=== PATIENT | female | born 1990 | race Caucasian/White ===

== ENCOUNTER 2017-03-17 08:25 | Inpatient (IN) | payer OTHER ==
[2017-03-17] MEDS ORDERED: Ondansetron 4 MG/2 ML SDV IVPUSH PRN ×2 (08:42→10:41)
[2017-03-17] MEDS ORDERED: Nalbuphine 20 MG/1 ML Amp IVPUSH PRN (08:42)
[2017-03-17] MEDS ORDERED: Sodium Chloride 0.9% 10 ML Syringe FLUSH PRN (08:42)
--- NOTE | 2017-03-17 08:44 | PCM.LDHP ---
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 a positive antibody screen negative hemoglobin hematocrit 09/05/1713.5 and 42.9 platelets 216,000 Pap smear negative rubella immune RPR nonreactive hepatitis B surface antigen negative HIV negative TSH within normal limits hemoglobin 12/26/1712.1 1 hour OB glucose screen 116 GBS + we'll begin antibiotics now on second dose probably at about 1:00 therefore patient will hopefully received 2 doses of antibiotics prior to delivery Pain Score: 2 Improves with: Reports: None Worsens with: Reports: None Associated Symptoms: Reports: N - Related Data Allergies/Adverse Reactions: Allergies Allergy/AdvReac Type Severity Reaction Status Date / Time gluten AdvReac Headache Verified 02/06/15 16:31 Home Medications: Home Meds Acetaminophen [Tylenol] 650 mg PO Q4H PRN #1 tablet 02/08/15 [Rx] Benzocaine/Menthol [Dermoplast Pain Relief Admire] 1 can TOP ASDIRECTED PRN #1 canister 02/08/15 [Rx] Docusate Sodium [Colace] 100 mg PO BID PRN #1 cap 02/08/15 [Rx] Ibuprofen [Motrin] 600 mg PO Q4H PRN #1 tablet 02/08/15 [Rx] Lanolin [Lansinoh HPA] 1 tube TOP ASDIRECTED PRN #1 crm 02/08/15 [Rx] Magnesium Hydroxide [Milk of Magnesia] 30 ml PO BEDTIME PRN #1 cup 02/08/15 [Rx] Witch Lucia [Tucks] 1 pad TOP ASDIRECTED PRN #1 pad 02/08/15 [Rx] Past Medical History Respiratory History: Reports: Asthma : 2 Para: 1 (1001) Psychiatric History: Reports: Anxiety, Depression Hematologic History: Reports: Anemia Social & Family History - Family History Cardiac: Reports: Hypertension (Maternal grandmother), Other (See Below) (Heart diseasematernal grandmother) Neurological: Reports: CVA (Maternal grandmother), Other (See Below) ( Fibromyalgiamother, brother; neuropathyBrother) Endocrine/Metabolic: Reports: Diabetes, type II (Maternal grandmother) Immunologic: Reports: Other (See Below) (Rheumatoid arthritismother, brother, maternal grandmother) - Tobacco Use Smoking Status *Q: Never Smoker Second Hand Smoke Exposure: No - Recreational Drug Use Recreational Drug Use: No H&P Review of Systems - Review of Systems: Review Of Systems: See Below General: Reports: No Symptoms HEENT: Reports: No Symptoms Pulmonary: Reports: No Symptoms Cardiovascular: Reports: No Symptoms Gastrointestinal: Reports: No Symptoms Genitourinary: Reports: No Symptoms Musculoskeletal: Reports: No Symptoms Skin: Reports: No Symptoms Psychiatric: Reports: No Symptoms Neurological: Reports: No Symptoms Hematologic/Lymphatic: Reports: No Symptoms Immunologic: Reports: No Symptoms L&D Exam - Exam Exam: See Below - Vital Signs Weight: 180 lb 12.8 oz - OB Specific Fundal Height In cm: 38 Contraction Intensity: Mild to Moderate Movement: Active Heart Tones: Present Heart Tones per Min: 135 Heart Rate (FHR) Variability: Moderate (6-25 bmp) Presentation: Vertex - Santos Score Santos Score Cervix Position: Posterior Santos Score Consistency: Soft Santos Score Effacement: 31-50% Santos Score Dilation: 1-2 cm Santos Score 's Station: -2 Santos Score Total: 5 - Exam General: Alert, Oriented HEENT: Conjunctiva Clear, Mucosa Moist & [place], PERRLA Neck: Supple, Trachea Midline Lungs: Clear to Auscultation, Normal Respiratory Effort Cardiovascular: Regular Rate, Regular Rhythm GI/Abdominal Exam: Normal Bowel Sounds, Soft, Non-Tender, Pelvis Stable Genitourinary: Normal external exam Extremities: Normal Inspection, Normal Range of Motion, Non-Tender, No Pedal Edema, Normal Capillary Refill Skin: Warm, Dry, Intact Neurological: Reflexes Equal Bilateral Psychiatric: Alert, Normal Affect, Normal Mood - Problem List (1) 39 weeks gestation of SNOMED Code(s): 30326336 ICD Code: Z3A.39 - 39 WEEKS GESTATION OF Status: Acute Current Visit: Yes (2) GBS carrier SNOMED Code(s): 3769635918013 ICD Code: Z22.330 - CARRIER OF GROUP B STREPTOCOCCUS Status: Acute Current Visit: Yes Problem List Initiated/Reviewed/Updated: No
[2017-03-17] MEDS ORDERED: Oxytocin/Lactated Ringers 10 UNIT/1,000 ML BAG IV SCH ×2 (08:45→09:00)
[2017-03-17] MEDS ORDERED: Misoprostol 25 MCG (1/4 of 100 MCG) Tab VAG ONE (08:46)
[2017-03-17] MEDS: Ampicillin 1 GM in Sodium Chloride 0.9% 100 ML IV SCH ×4 (09:12→10:23)
[2017-03-17] MEDS: Lactated Ringers 1,000 ML IV SCH ×3 (09:12→13:53)
[2017-03-17] MEDS ORDERED: ePHEDrine 50 MG/ML SDV IVPUSH PRN (10:41)
[2017-03-17] MEDS ORDERED: fentaNYL 100 MCG/2 ML SDV EPIDUR PRN (10:41)
[2017-03-17] MEDS ORDERED: Bupivacaine/fentaNYL/NS 100 ML Bag EPIDUR SCH (10:45)
--- NOTE | 2017-03-17 10:48 | PCM.PREANE ---
Preanesthetic Assessment - Anesthesia/Transfusion/Family Hx Anesthesia History: Prior Anesthesia Without Reaction Family History of Anesthesia Reaction: No Transfusion History: No Prior Transfusion(s) Intubation History: Unknown - Review of Systems General: No Symptoms Pulmonary: No Symptoms (asthma, has taken ventolin last 3 months ago.) Cardiovascular: No Symptoms Gastrointestinal: Constipation Neurological: No Symptoms Other: Reports: Easy Bruising, Sinus Problem (seasonal allergies), Depression, Anxiety - Physical Assessment NPO Status Date: 03/17/17 NPO Status Time: 06:00 Pulse: 85 O2 Sat by Pulse Oximetry: 100 Respiratory Rate: 14 Blood Pressure: 128/70 Temperature: 36.4 C Vital Signs: Last Vital Signs Temp 36.4 C 03/17/17 08:42 Pulse 85 03/17/17 08:42 Resp 14 03/17/17 08:42 BP 128/70 03/17/17 08:42 Pulse Ox 100 03/17/17 08:42 Height: 1.7 m Weight: 80.196 kg ASA Class: 2 Mental Status: Alert & Oriented x3 Airway Class: Mallampati = 2 Dentition: Reports: Normal Dentition, Caries Thyro-Mental Finger Breadths: 3 Mouth Opening Finger Breadths: 3 ROM/Head Extension: Full Lungs: Clear to Auscultation, Normal Respiratory Effort Cardiovascular: Regular Rate, Regular Rhythm, No Murmurs - Allergies Allergies/Adverse Reactions: Allergies Allergy/AdvReac Type Severity Reaction Status Date / Time gluten AdvReac Headache Verified 03/17/17 10:09 - Anesthesia Plan Pre-Op Medication Ordered: None - Acknowledgements Anesthesia Type Planned: Epidural Pt an Appropriate Candidate for the Planned Anesthesia: Yes Alternatives and Risks of Anesthesia Discussed w Pt/Guardian: Yes Pt/Guardian Understands and Agrees with Anesthesia Plan: Yes PreAnesthesia Questionnaire Respiratory History: Reports: Asthma [employer] History: Reports: Psychiatric History: Reports: Anxiety, Depression Other Psychiatric History: [place] with meds Hematologic History: Reports: Anemia - Past Surgical History Other HEENT Surgeries/Procedures: [place] teeth removal - SUBSTANCE USE Smoking Status *Q: Never Smoker Second Hand Smoke Exposure: No Recreational Drug Use History: No - HOME MEDS Home Medications: Home Meds Calcium Carbonate/Vitamin D3 [Calcium 500 mg Chewable Tablet] 1 each PO DAILY [History] Fluticasone/Salmeterol [Advair 250-50 Diskus] 1 puff INH BID 03/17/17 [History] Prasterone (DHEA)/Calcium Carb [DHEA] 1 tab PO DAILY 03/17/17 [History] Vit #108/Iron/FA [ One Tablet] 1 tab PO DAILY 03/17/17 [History ] buPROPion HCl [Wellbutrin Xl] 150 mg PO DAILY 03/17/17 [History] - CURRENT (IN HOUSE) MEDS Current Meds: Current Medications Lactated Ringer's (Ringers, Lactated) 1,000 mls @ 100 mls/hr IV ASDIRECTED ARACELI Last Admin: 03/17/17 09:12 Dose: 100 mls/hr Oxytocin/Lactated Ringer's (Pitocin In Lr 10 Units/1,000 Ml) 10 unit in 1,000 mls @ 500 mls/hr IV .CONTINUOUS ARACELI Oxytocin/Lactated Ringer's (Pitocin In Lr 10 Units/1,000 Ml) 10 unit in 1,000 mls @ 12 mls/hr IV TITRATE ARACELI; 2 MUNITS/MIN PRN Reason: Protocol Ampicillin Sodium 1 gm/ Sodium (Chloride) 100 mls @ 200 mls/hr IV Q4H ARACELI Nalbuphine HCl (Nubain) 10 mg IVPUSH Q2H PRN PRN Reason: Pain (moderate 4-6) Ondansetron HCl (Zofran) 4 mg IVPUSH Q4H PRN PRN Reason: Nausea/Vomiting Sodium Chloride (Saline Flush) 10 ml FLUSH ASDIRECTED PRN PRN Reason: Keep Vein Open Discontinued Medications Ampicillin Sodium 1 gm/ Sodium (Chloride) 100 mls @ 200 mls/hr IV Q15M ARACELI Stop: 03/17/17 09:30 Last Admin: 03/17/17 10:23 Dose: Not Given Misoprostol (Cytotec) 25 mcg VAG ONETIME ONE Stop: 03/17/17 08:47 Last Admin: 03/17/17 09:12 Dose: 25 mcg
[2017-03-17] MEDS ORDERED: Ampicillin 1 GM in Sodium Chloride 0.9% 100 ML IV SCH ×2 (13:00→13:15)
--- NOTE | 2017-03-17 13:13 | PCM.SN ---
- Free Text/Narrative Note: Cervix 3-4 cm, 70% effaced, soft, posterior, vtx-1, Cat I FHR before and after amniotomy at 1307 clear fluid.
--- NOTE | 2017-03-17 16:35 | PCM.DEL ---
L & D Note - General Info Date of Service: 03/17/17 - Delivery Note Labor: Spontaneous, Augmented by ARM Delivery Outcome: Livebirth (Female liveborn 1610 hrs. on Thursday03/17/17 30/4/ 50 grams 7 pounds 9.7 ounces Apgars 9/9 EDMUND) Infant Delivery Mode: Spontaneous Presentation: Left Occiput Anterior (EDMUND) Nuchal Cord: None Prep: Povidone-Iodine (Betadine Anesthesia Type: None Amniotic Fluid Description: Clear Episiotomy Type: None Laceration: 1st Degree Suture type: Other (Monocryl) Suture size: 3-0 (1) Placenta: Intact, Spontaneous (161303/17/17 eccentric cord insertion Susan, intact examined discarded) Cord: 3 Vessels Estimated Blood Loss: 250 Resuscitation Needed: No : Suctioned, Bulb Syringe, Stimulated, Warmed, [place] Used, Warmer Used Provider: Alek Shah Score 1 min: 9 Score 5 min: 9 - Patient Data Vitals - Most Recent: Last Vital Signs Temp 97.5 F 03/17/17 10:51 Pulse 85 03/17/17 10:51 Resp 14 03/17/17 10:51 BP 128/70 03/17/17 10:51 Pulse Ox 100 03/17/17 10:51 Weight - Most Recent: 176 lb 12.817 oz Lab Results Last 24 Hours: Laboratory Results - last 24 hr 03/17/17 Range/Units 10:29 WBC 7.37 (3.98-10.04) K/mm3 RBC 4.33 (3.98-5.22) M/mm3 Hgb 13.1 (11.2-15.7) gm/L Hct 39.4 (34.1-44.9) % MCV 91.0 (79.4-94.8) fl MCH 30.3 (25.6-32.2) pg MCHC 33.2 (32.2-35.5) g/dl RDW Std Deviation 43.4 (36.4-46.3) fL Plt Count 132 L (182-369) K/mm3 MPV 12.1 (9.4-12.3) fl Neut % (Auto) 68.9 (34.0-71.1) % Lymph % (Auto) 21.8 (19.3-51.7) % Jack % (Auto) 8.4 (4.7-12.5) % Eos % (Auto) 0.3 L (0.7-5.8) Baso % (Auto) 0.1 (0.1-1.2) % Neut # (Auto) 5.07 (1.56-6.13) K/mm3 Lymph # (Auto) 1.61 (1.18-3.74) K/mm3 Jack # (Auto) 0.62 H (0.24-0.36) K/mm3 Eos # (Auto) 0.02 L (0.04-0.36) K/mm3 Baso # (Auto) 0.01 (0.01-0.08) K/mm3 Med Orders - Current: Current Medications Ephedrine Sulfate (Ephedrine Sulfate) 5 mg IVPUSH ASDIRECTED PRN PRN Reason: Hypotension Fentanyl (Sublimaze) 100 mcg EPIDUR Q3H PRN PRN Reason: Pain Last Admin: 03/17/17 13:34 Dose: 100 mcg Fentanyl/Bupivacaine HCl (Fentanyl/Bupivacaine/Ns 2 Mcg-0.125% 100 Ml) 100 ml EPIDUR ASDIRECTED ARACELI Last Admin: 03/17/17 13:33 Dose: 100 ml Lactated Ringer's (Ringers, Lactated) 1,000 mls @ 100 mls/hr IV ASDIRECTED ARACELI Last Admin: 03/17/17 13:53 Dose: 100 mls/hr Oxytocin/Lactated Ringer's (Pitocin In Lr 10 Units/1,000 Ml) 10 unit in 1,000 mls @ 500 mls/hr IV .CONTINUOUS ARACELI Oxytocin/Lactated Ringer's (Pitocin In Lr 10 Units/1,000 Ml) 10 unit in 1,000 mls @ 12 mls/hr IV TITRATE ARACELI; 2 MUNITS/MIN PRN Reason: Protocol Last Titration: 03/17/17 12:27 Dose: 4 munits/min, 24 mls/hr Ampicillin Sodium 1 gm/ Sodium (Chloride) 100 mls @ 200 mls/hr IV Q4H ARACELI Last Admin: 03/17/17 13:15 Dose: 200 mls/hr Nalbuphine HCl (Nubain) 10 mg IVPUSH Q2H PRN PRN Reason: Pain (moderate 4-6) Ondansetron HCl (Zofran) 4 mg IVPUSH Q4H PRN PRN Reason: Nausea/Vomiting Ondansetron HCl (Zofran) 4 mg IVPUSH ONETIME PRN PRN Reason: Nausea/Vomiting Sodium Chloride (Saline Flush) 10 ml FLUSH ASDIRECTED PRN PRN Reason: Keep Vein Open Discontinued Medications Ampicillin Sodium 1 gm/ Sodium (Chloride) 100 mls @ 200 mls/hr IV Q15M [facility] Stop: 03/17/17 09:30 Last Admin: 03/17/17 10:23 Dose: Not Given Ampicillin Sodium 1 gm/ Sodium (Chloride) 100 mls @ 200 mls/hr IV Q4H ARACELI Misoprostol (Cytotec) 25 mcg VAG ONETIME ONE Stop: 03/17/17 08:47 Last Admin: 03/17/17 09:12 Dose: 25 mcg - Problem List & Annotations (1) 39 weeks gestation of SNOMED Code(s): 90877985 Code(s): Z3A.39 - 39 WEEKS GESTATION OF Status: Acute Current Visit: Yes (2) GBS carrier SNOMED Code(s): 0485944015168 Code(s): Z22.330 - CARRIER OF GROUP B STREPTOCOCCUS Status: Acute Current Visit: Yes (3) First degree laceration of perineum, delivered, current hospitalization SNOMED Code(s): 608602789 Code(s): O70.0 - FIRST DEGREE PERINEAL LACERATION DURING DELIVERY Status: Acute Current Visit: Yes - Problem List Review Problem List Initiated/Reviewed/Updated: No - My Orders Last 24 Hours: My Active Orders 03/17/17 08:42 Patient Status [ADT] Routine Activity as Tolerated [RC] PFP Communication Order [RC] ASDIRECTED Notify Provider [RC] PFP Notify Provider [RC] PRN Vital Signs [RC] PER UNIT ROUTINE Nalbuphine [Nubain] 10 mg IVPUSH Q2H PRN Ondansetron [Zofran] 4 mg IVPUSH Q4H PRN Sodium Chloride 0.9% [Saline Flush] 10 ml FLUSH ASDIRECTED PRN Electronic Heart Tones Ext w TOCO [WOMSER] Routine Electronic Heart Tones Internal [WOMSER] Per Unit Routine Peripheral IV Insertion Adult [OM.PC] Routine Resuscitation Status Routine 03/17/17 08:43 Heart Tones [RC] ASDIRECTED Peripheral IV Care [RC] . DIRECTED 03/17/17 08:45 Lactated Ringers [Ringers, Lactated] 1,000 ml IV ASDIRECTED Oxytocin/Lactated Ringers [Pitocin in LR 10 Units/1,000 ML] 10 unit in 1,000 ml IV .CONTINUOUS 03/17/17 09:00 Oxytocin/Lactated Ringers [Pitocin in LR 10 Units/1,000 ML] 10 unit in 1,000 ml IV TITRATE 03/17/17 13:15 Ampicillin 1 gm Sodium Chloride 0.9% [Normal Saline] 100 ml IV Q4H 03/17/17 Breakfast Clear Liquid Diet [DIET] - Plan Plan:: Spontaneous vaginal delivery
[2017-03-17] MEDS ORDERED: Witch Hazel Medicated Pads 100/Jar TOP PRN (17:03)
[2017-03-17] MEDS ORDERED: Lanolin 100% Cream 7 GM Tube TOP PRN (17:03)
[2017-03-17] MEDS ORDERED: Ibuprofen 600 MG Tab PO PRN (17:03)
[2017-03-17] MEDS ORDERED: Acetaminophen 325 MG Tab PO PRN (17:03)
[2017-03-17] MEDS ORDERED: Benzocaine/Menthol 20%-0.5% Spray 56 GM Canister TOP PRN (17:03)
--- NOTE | 2017-03-17 17:47 | PCM48HPAN ---
Post Anesthesia Note - EVALUATION WITHIN 48HRS OF ANESTHETIC Vital Signs in Normal Range: Yes Patient Participated in Evaluation: Yes Respiratory Function Stable: Yes Airway Patent: Yes Cardiovascular Function Stable: Yes Hydration Status Stable: Yes Pain Control Satisfactory: Yes Nausea and Vomiting Control Satisfactory: Yes Mental Status Recovered: Yes
[2017-03-17] MEDS ORDERED: Bupivacaine 0.25% 10 ML SDV ONE (22:22)
[2017-03-17] MEDS: Formoterol/Mometasone 200-5 MCG 8.8 GM Inhaler IH SCH (22:45)
--- NOTE | 2017-03-18 07:02 | PCM.DCSUM1 ---
Discharge Summary - Hospital Course Free Text/Narrative:: [facility] LIVE L/D Delivery Note Patient Name: GREGG MOHR Date of : 86 Patient Status: Inpatient Attending Provider: Alek Shah Date: 03/17/17 16:30 Initialization Date: 03/17/17 16:30 L & D Note - General Info Date of Service: 03/17/17 - Delivery Note Labor: Spontaneous, Augmented by ARM Delivery Outcome: Livebirth (Female liveborn 1610 hrs. on Thursday03/17/17 30/4/ 50 grams 7 pounds 9.7 ounces Apgars 9/9 EDMUND) Infant Delivery Mode: Spontaneous Presentation: Left Occiput Anterior (EDMUND) Nuchal Cord: None Prep: Povidone-Iodine (Betadine Anesthesia Type: None Amniotic Fluid Description: Clear Episiotomy Type: None Laceration: 1st Degree Suture type: Other (Monocryl) Suture size: 3-0 (1) Placenta: Intact, Spontaneous (1614 Thursday03/17/17 eccentric cord insertion Susan, intact examined discarded) Cord: 3 Vessels Estimated Blood Loss: 250 Resuscitation Needed: No : Suctioned, Bulb Syringe, Stimulated, Warmed, [place] Used, Warmer Used Provider: Alek Shah Score 1 min: 9 Score 5 min: 9 - Patient Data Vitals - Most Recent: Last Vital Signs Temp 97.5 F 03/17/17 10:51 Pulse 85 03/17/17 10:51 Resp 14 03/17/17 10:51 BP 128/70 03/17/17 10:51 Pulse Ox 100 03/17/17 10:51 Weight - Most Recent: 176 lb 12.817 oz Lab Results Last 24 Hours: Laboratory Results - last 24 hr 03/17/17 Range/Units 10:29 WBC 7.37 (3.98-10.04) K/mm3 RBC 4.33 (3.98-5.22) M/mm3 Hgb 13.1 (11.2-15.7) gm/L Hct 39.4 (34.1-44.9) % MCV 91.0 (79.4-94.8) fl MCH 30.3 (25.6-32.2) pg MCHC 33.2 (32.2-35.5) g/dl RDW Std Deviation 43.4 (36.4-46.3) fL Plt Count 132 L (182-369) K/mm3 MPV 12.1 (9.4-12.3) fl Neut % (Auto) 68.9 (34.0-71.1) % Lymph % (Auto) 21.8 (19.3-51.7) % [place] % (Auto) 8.4 (4.7-12.5) % Eos % (Auto) 0.3 L (0.7-5.8) Baso % (Auto) 0.1 (0.1-1.2) % Neut # (Auto) 5.07 (1.56-6.13) K/mm3 Lymph # (Auto) 1.61 (1.18-3.74) K/mm3 [place] # (Auto) 0.62 H (0.24-0.36) K/mm3 Eos # (Auto) 0.02 L (0.04-0.36) K/mm3 Baso # (Auto) 0.01 (0.01-0.08) K/mm3 Med Orders - Current: Current Medications Ephedrine Sulfate (Ephedrine Sulfate) 5 mg IVPUSH ASDIRECTED PRN PRN Reason: Hypotension Fentanyl (Sublimaze) 100 mcg EPIDUR Q3H PRN PRN Reason: Pain Last Admin: 03/17/17 13:34 Dose: 100 mcg Fentanyl/Bupivacaine HCl (Fentanyl/Bupivacaine/Ns 2 Mcg-0.125% 100 Ml) 100 ml EPIDUR ASDIRECTED ARACELI Last Admin: 03/17/17 13:33 Dose: 100 ml Lactated Ringer's (Ringers, Lactated) 1,000 mls @ 100 mls/hr IV ASDIRECTED ARACELI Last Admin: 03/17/17 13:53 Dose: 100 mls/hr Oxytocin/Lactated Ringer's (Pitocin In Lr 10 Units/1,000 Ml) 10 unit in 1,000 mls @ 500 mls/hr IV .CONTINUOUS ARACELI Oxytocin/Lactated Ringer's (Pitocin In Lr 10 Units/1,000 Ml) 10 unit in 1,000 mls @ 12 mls/hr IV TITRATE ARACELI; 2 MUNITS/MIN PRN Reason: Protocol Last Titration: 03/17/17 12:27 Dose: 4 munits/min, 24 mls/hr Ampicillin Sodium 1 gm/ Sodium (Chloride) 100 mls @ 200 mls/hr IV Q4H ARACELI Last Admin: 03/17/17 13:15 Dose: 200 mls/hr Nalbuphine HCl (Nubain) 10 mg IVPUSH Q2H PRN PRN Reason: Pain (moderate 4-6) Ondansetron HCl (Zofran) 4 mg IVPUSH Q4H PRN PRN Reason: Nausea/Vomiting Ondansetron HCl (Zofran) 4 mg IVPUSH ONETIME PRN PRN Reason: Nausea/Vomiting Sodium Chloride (Saline Flush) 10 ml FLUSH ASDIRECTED PRN PRN Reason: Keep Vein Open Discontinued Medications Ampicillin Sodium 1 gm/ Sodium (Chloride) 100 mls @ 200 mls/hr IV Q15M ARACELI Stop: 03/17/17 09:30 Last Admin: 03/17/17 10:23 Dose: Not Given Ampicillin Sodium 1 gm/ Sodium (Chloride) 100 mls @ 200 mls/hr IV Q4H ARACELI Misoprostol (Cytotec) 25 mcg VAG ONETIME ONE Stop: 03/17/17 08:47 Last Admin: 03/17/17 09:12 Dose: 25 mcg - Problem List & Annotations (1) 39 weeks gestation of SNOMED Code(s): 61201495 Code(s): Z3A.39 - 39 WEEKS GESTATION OF Status: Acute Current Visit: Yes (2) GBS carrier SNOMED Code(s): 5179154265249 Code(s): Z22.330 - CARRIER OF GROUP B STREPTOCOCCUS Status: Acute Current Visit: Yes (3) First degree laceration of perineum, delivered, current hospitalization SNOMED Code(s): 292324195 Code(s): O70.0 - FIRST DEGREE PERINEAL LACERATION DURING DELIVERY Status: Acute Current Visit: Yes - Problem List Review Problem List Initiated/Reviewed/Updated: No - My Orders Last 24 Hours: My Active Orders 03/17/17 08:42 Patient Status [ADT] Routine Activity as Tolerated [RC] PFP Communication Order [RC] ASDIRECTED Notify Provider [RC] PFP Notify Provider [RC] PRN Vital Signs [RC] PER UNIT ROUTINE Nalbuphine [Nubain] 10 mg IVPUSH Q2H PRN Ondansetron [Zofran] 4 mg IVPUSH Q4H PRN Sodium Chloride 0.9% [Saline Flush] 10 ml FLUSH ASDIRECTED PRN Electronic Heart Tones Ext w TOCO [WOMSER] Routine Electronic Heart Tones Internal [WOMSER] Per Unit Routine Peripheral IV Insertion Adult [OM.PC] Routine Resuscitation Status Routine 03/17/17 08:43 Heart Tones [RC] ASDIRECTED Peripheral IV Care [RC] . DIRECTED 03/17/17 08:45 Lactated Ringers [Ringers, Lactated] 1,000 ml IV ASDIRECTED Oxytocin/Lactated Ringers [Pitocin in LR 10 Units/1,000 ML] 10 unit in 1,000 ml IV .CONTINUOUS 03/17/17 09:00 Oxytocin/Lactated Ringers [Pitocin in LR 10 Units/1,000 ML] 10 unit in 1,000 ml IV TITRATE 03/17/17 13:15 Ampicillin 1 gm Sodium Chloride 0.9% [Normal Saline] 100 ml IV Q4H 03/17/17 Breakfast Clear Liquid Diet [DIET] - Plan Plan:: Spontaneous vaginal delivery HPI Initial Comments: [facility] LIVE L/D Delivery Note Patient Name: GREGG MOHR Date of : 86 Patient Status: Inpatient Attending Provider: Alek Shah Date: 03/17/17 16:30 Initialization Date: 03/17/17 16:30 L & D Note - General Info Date of Service: 03/17/17 - Delivery Note Labor: Spontaneous, Augmented by ARM Delivery Outcome: Livebirth (Female liveborn 1610 hrs. on Thursday03/17/17 30/4/ 50 grams 7 pounds 9.7 ounces Apgars 9/9 EDMUND) Delivery Mode: Spontaneous Presentation: Left Occiput Anterior (EDMUND) Nuchal Cord: None Prep: Povidone-Iodine (Betadine Anesthesia Type: None Amniotic Fluid Description: Clear Episiotomy Type: None Laceration: 1st Degree Suture type: Other (Monocryl) Suture size: 3-0 (1) Placenta: Intact, Spontaneous (161303/17/17 eccentric cord insertion [place], intact examined discarded) Cord: 3 Vessels Estimated Blood Loss: 250 Resuscitation Needed: No [place]: Suctioned, Bulb Syringe, Stimulated, Warmed, Cutler Used, Warmer Used Provider: Alek Shah Score 1 min: 9 Score 5 min: 9 - Patient Data Vitals - Most Recent: Last Vital Signs Temp 97.5 F 03/17/17 10:51 Pulse 85 03/17/17 10:51 Resp 14 03/17/17 10:51 BP 128/70 03/17/17 10:51 Pulse Ox 100 03/17/17 10:51 Weight - Most Recent: 176 lb 12.817 oz Lab Results Last 24 Hours: Laboratory Results - last 24 hr 03/17/17 Range/Units 10:29 WBC 7.37 (3.98-10.04) K/mm3 RBC 4.33 (3.98-5.22) M/mm3 Hgb 13.1 (11.2-15.7) gm/L Hct 39.4 (34.1-44.9) % MCV 91.0 (79.4-94.8) fl MCH 30.3 (25.6-32.2) pg MCHC 33.2 (32.2-35.5) g/dl RDW Std Deviation 43.4 (36.4-46.3) fL Plt Count 132 L (182-369) K/mm3 MPV 12.1 (9.4-12.3) fl Neut % (Auto) 68.9 (34.0-71.1) % Lymph % (Auto) 21.8 (19.3-51.7) % [place] % (Auto) 8.4 (4.7-12.5) % Eos % (Auto) 0.3 L (0.7-5.8) Baso % (Auto) 0.1 (0.1-1.2) % Neut # (Auto) 5.07 (1.56-6.13) K/mm3 Lymph # (Auto) 1.61 (1.18-3.74) K/mm3 [place] # (Auto) 0.62 H (0.24-0.36) K/mm3 Eos # (Auto) 0.02 L (0.04-0.36) K/mm3 Baso # (Auto) 0.01 (0.01-0.08) K/mm3 Med Orders - Current: Current Medications Ephedrine Sulfate (Ephedrine Sulfate) 5 mg IVPUSH ASDIRECTED PRN PRN Reason: Hypotension Fentanyl (Sublimaze) 100 mcg EPIDUR Q3H PRN PRN Reason: Pain Last Admin: 03/17/17 13:34 Dose: 100 mcg Fentanyl/Bupivacaine HCl (Fentanyl/Bupivacaine/Ns 2 Mcg-0.125% 100 Ml) 100 ml EPIDUR ASDIRECTED ARACELI Last Admin: 03/17/17 13:33 Dose: 100 ml Lactated Ringer's (Ringers, Lactated) 1,000 mls @ 100 mls/hr IV ASDIRECTED ARACELI Last Admin: 03/17/17 13:53 Dose: 100 mls/hr Oxytocin/Lactated Ringer's (Pitocin In Lr 10 Units/1,000 Ml) 10 unit in 1,000 mls @ 500 mls/hr IV .CONTINUOUS ARACELI Oxytocin/Lactated Ringer's (Pitocin In Lr 10 Units/1,000 Ml) 10 unit in 1,000 mls @ 12 mls/hr IV TITRATE ARACELI; 2 MUNITS/MIN PRN Reason: Protocol Last Titration: 03/17/17 12:27 Dose: 4 munits/min, 24 mls/hr Ampicillin Sodium 1 gm/ Sodium (Chloride) 100 mls @ 200 mls/hr IV Q4H [facility] Last Admin: 03/17/17 13:15 Dose: 200 mls/hr Nalbuphine HCl (Nubain) 10 mg IVPUSH Q2H PRN PRN Reason: Pain (moderate 4-6) Ondansetron HCl (Zofran) 4 mg IVPUSH Q4H PRN PRN Reason: Nausea/Vomiting Ondansetron HCl (Zofran) 4 mg IVPUSH ONETIME PRN PRN Reason: Nausea/Vomiting Sodium Chloride (Saline Flush) 10 ml FLUSH ASDIRECTED PRN PRN Reason: Keep Vein Open Discontinued Medications Ampicillin Sodium 1 gm/ Sodium (Chloride) 100 mls @ 200 mls/hr IV Q15M [facility] Stop: 03/17/17 09:30 Last Admin: 03/17/17 10:23 Dose: Not Given Ampicillin Sodium 1 gm/ Sodium (Chloride) 100 mls @ 200 mls/hr IV Q4H ARACELI Misoprostol (Cytotec) 25 mcg VAG ONETIME ONE Stop: 03/17/17 08:47 Last Admin: 03/17/17 09:12 Dose: 25 mcg - Problem List & Annotations (1) 39 weeks gestation of SNOMED Code(s): 60403852 Code(s): Z3A.39 - 39 WEEKS GESTATION OF Status: Acute Current Visit: Yes (2) GBS carrier SNOMED Code(s): 1492473366150 Code(s): Z22.330 - CARRIER OF GROUP B STREPTOCOCCUS Status: Acute Current Visit: Yes (3) First degree laceration of perineum, delivered, current hospitalization SNOMED Code(s): 447660465 Code(s): O70.0 - FIRST DEGREE PERINEAL LACERATION DURING DELIVERY Status: Acute Current Visit: Yes - Problem List Review Problem List Initiated/Reviewed/Updated: No - My Orders Last 24 Hours: My Active Orders 03/17/17 08:42 Patient Status [ADT] Routine Activity as Tolerated [RC] PFP Communication Order [RC] ASDIRECTED Notify Provider [RC] PFP Notify Provider [RC] PRN Vital Signs [RC] PER UNIT ROUTINE Nalbuphine [Nubain] 10 mg IVPUSH Q2H PRN Ondansetron [Zofran] 4 mg IVPUSH Q4H PRN Sodium Chloride 0.9% [Saline Flush] 10 ml FLUSH ASDIRECTED PRN Electronic Heart Tones Ext w TOCO [WOMSER] Routine Electronic Heart Tones Internal [WOMSER] Per Unit Routine Peripheral IV Insertion Adult [OM.PC] Routine Resuscitation Status Routine 03/17/17 08:43 Heart Tones [RC] ASDIRECTED Peripheral IV Care [RC] . DIRECTED 03/17/17 08:45 Lactated Ringers [Ringers, Lactated] 1,000 ml IV ASDIRECTED Oxytocin/Lactated Ringers [Pitocin in LR 10 Units/1,000 ML] 10 unit in 1,000 ml IV .CONTINUOUS 03/17/17 09:00 Oxytocin/Lactated Ringers [Pitocin in LR 10 Units/1,000 ML] 10 unit in 1,000 ml IV TITRATE 03/17/17 13:15 Ampicillin 1 gm Sodium Chloride 0.9% [Normal Saline] 100 ml IV Q4H 03/17/17 Breakfast Clear Liquid Diet [DIET] - Plan Plan:: Spontaneous vaginal delivery Brief History: [facility] LIVE . L/D Delivery Note. Patient Name: GREGG MOHR Record Number: [id number]. Date of : Patient Status: Inpatient. Attending Provider: Alek Shahount Number: [id number]. Date: 03/17/17 16:30Initialization Date: 03/17/17 16:30. L & D Note. - General Info. Date of Service: 03/17/17. - Delivery Note. Labor: Spontaneous, Augmented by ARM. Delivery Outcome: Livebirth (Female liveborn 1610 hrs. on Thursday03/17/17 30/4/50 grams 7 pounds 9.7 ounces Apgars 9 /9 EDMUND). Infant Delivery Mode: Spontaneous. Presentation: Left Occiput Anterior (EDMUND). Nuchal Cord: None. Prep: Povidone-Iodine (Betadine. Anesthesia Type: None. Amniotic Fluid Description: Clear. Episiotomy Type: None. Laceration: 1st Degree. Suture type: Other (Monocryl). Suture size: 3- 0 (1). Placenta: Intact, Spontaneous (161303/17/17 eccentric cord insertion Susan, intact examined discarded). Cord: 3 Vessels. Estimated Blood Loss: 250. Resuscitation Needed: No. : Suctioned, Bulb Syringe, Stimulated, Warmed, Cutler Used, Warmer Used. Provider: Alek Shah. Score 1 min: 9. Score 5 min: 9. - Patient Data. Vitals - Most Recent: Last Vital Signs. Temp 97.5 F 03/17/17 10:51. Pulse 85 03/17/17 10:51. Resp 14 03/17/17 10:51. BP 128/70 03/17/17 10:51. Pulse Ox 100 03/17/17 10:51. Weight - Most Recent: 176 lb 12.817 oz. Lab Results Last 24 Hours: Laboratory Results - last 24 hr. 03/17/17Range/Units. 10:29. WBC 7.37 (3.98-10.04) K/mm3. RBC 4.33 (3.98-5.22) M/mm3. Hgb 13.1 ( 11.2-15.7) gm/L. Hct 39.4 (34.1-44.9) %. MCV 91.0 (79.4-94.8) fl. MCH 30.3 (25.6-32.2) pg. MCHC 33.2 (32.2-35.5) g/dl. RDW Std Deviation 43.4 ( 36.4-46.3) fL. Plt Count 132 L (182-369) K/mm3. MPV 12.1 (9.4-12.3) fl. Neut % (Auto) 68.9 (34.0-71.1) %. Lymph % (Auto) 21.8 (19.3-51.7) %. [place] % (Auto) 8.4 (4.7-12.5) %. Eos % (Auto) 0.3 L (0.7-5.8). Baso % (Auto) 0.1 (0.1 -1.2) %. Neut # (Auto) 5.07 (1.56-6.13) K/mm3. Lymph # (Auto) 1.61 (1.18- 3.74) K/mm3. [place] # (Auto) 0.62 H (0.24-0.36) K/mm3. Eos # (Auto) 0.02 L ( 0.04-0.36) K/mm3. Baso # (Auto) 0.01 (0.01-0.08) K/mm3. Med Orders - Current : Current Medications. Ephedrine Sulfate (Ephedrine Sulfate) 5 mg IVPUSH ASDIRECTED PRN. PRN Reason: Hypotension. Fentanyl (Sublimaze) 100 mcg EPIDUR Q3H PRN. PRN Reason: Pain. Last Admin: 03/17/17 13:34 Dose: 100 mcg. Fentanyl/Bupivacaine HCl (Fentanyl/Bupivacaine/Ns 2 Mcg-0.125% 100 Ml) 100 ml EPIDUR ASDIRECTED ARACELI. Last Admin: 03/17/17 13:33 Dose: 100 ml. Lactated Ringer's (Ringers, Lactated) 1,000 mls @ 100 mls/hr IV ASDIRECTED ARACELI. Last Admin: 03/17/17 13:53 Dose: 100 mls/hr. Oxytocin/Lactated Ringer's (Pitocin In Lr 10 Units/1,000 Ml) 10 unit in 1,000 mls @ 500 mls/hr IV .CONTINUOUS ARACELI. Oxytocin/Lactated Ringer's (Pitocin In Lr 10 Units/1,000 Ml) 10 unit in 1, 000 mls @ 12 mls/hr IV TITRATE ARACELI; 2 MUNITS/MIN. PRN Reason: Protocol. Last Titration: 03/17/17 12:27 Dose: 4 munits/min, 24 mls/hr. Ampicillin Sodium 1 gm/ Sodium (Chloride) 100 mls @ 200 mls/hr IV Q4H ARACELI. Last Admin: 03/17/17 13 :15 Dose: 200 mls/hr. Nalbuphine HCl (Nubain) 10 mg IVPUSH Q2H PRN. PRN Reason: Pain (moderate 4-6). Ondansetron HCl (Zofran) 4 mg IVPUSH Q4H PRN. PRN Reason: Nausea/Vomiting. Ondansetron HCl (Zofran) 4 mg IVPUSH ONETIME PRN. PRN Reason: Nausea/Vomiting. Sodium Chloride (Saline Flush) 10 ml FLUSH ASDIRECTED PRN. PRN Reason: Keep Vein Open. Discontinued Medications. Ampicillin Sodium 1 gm/ Sodium (Chloride) 100 mls @ 200 mls/hr IV Q15M ARACELI. Stop: 03/17/17 09:30. Last Admin: 03/17/17 10:23 Dose: Not Given. Ampicillin Sodium 1 gm/ Sodium (Chloride) 100 mls @ 200 mls/hr IV Q4H ARACELI. Misoprostol ( Cytotec) 25 mcg VAG ONETIME ONE. Stop: 03/17/17 08:47. Last Admin: 03/17/17 09:12 Dose: 25 mcg. - Problem List & Annotations. (1) 39 weeks gestation of . SNOMED Code(s): 50300048. Code(s): Z3A.39 - 39 WEEKS GESTATION OF Status: Acute Current Visit: Yes. (2) GBS carrier. SNOMED Code(s ): 9165236648960. Code(s): Z22.330 - CARRIER OF GROUP B STREPTOCOCCUS Status : Acute Current Visit: Yes. (3) First degree laceration of perineum, delivered, current hospitalization. SNOMED Code(s): 012714650. Code(s): O70.0 - FIRST DEGREE PERINEAL LACERATION DURING DELIVERY Status: Acute Current Visit: Yes. - Problem List Review. Problem List Initiated/Reviewed/Updated: No. - My Orders. Last 24 Hours: My Active Orders. 03/17/17 08:42. Patient Status [ADT] Routine. Activity as Tolerated [RC] PFP. Communication Order [RC ] ASDIRECTED. Notify Provider [RC] PFP. Notify Provider [RC] PRN. Vital Signs [RC] PER UNIT ROUTINE. Nalbuphine [Nubain] 10 mg IVPUSH Q2H PRN. Ondansetron [Zofran] 4 mg IVPUSH Q4H PRN. Sodium Chloride 0.9% [Saline Flush ] 10 ml FLUSH ASDIRECTED PRN. Electronic Heart Tones Ext w TOCO [WOMSER ] Routine. Electronic Heart Tones Internal [WOMSER] Per Unit Routine. Peripheral IV Insertion Adult [OM.PC] Routine. Resuscitation Status Routine. 03/17/17 08:43. Heart Tones [RC] ASDIRECTED. Peripheral IV Care [RC] . DIRECTED. 03/17/17 08:45. Lactated Ringers [Ringers, Lactated] 1,000 ml IV ASDIRECTED. Oxytocin/Lactated Ringers [Pitocin in LR 10 Units/1,000 ML] 10 unit in 1,000 ml IV .CONTINUOUS. 03/17/17 09:00. Oxytocin/Lactated Ringers [ Pitocin in LR 10 Units/1,000 ML] 10 unit in 1,000 ml IV TITRATE. 03/17/17 13: 15. Ampicillin 1 gm Sodium Chloride 0.9% [Normal Saline] 100 ml IV Q4H. Breakfast. Clear Liquid Diet [DIET]. - Plan. Plan:: Spontaneous vaginal delivery - Discharge Data Discharge Date: 03/18/17 Discharge Disposition: Home, Self-Care 01 Condition: Good - Discharge Diagnosis/Problem(s) (1) 39 weeks gestation of SNOMED Code(s): 78544156 ICD Code: Z3A.39 - 39 WEEKS GESTATION OF Status: Acute Current Visit: Yes (2) GBS carrier SNOMED Code(s): 2615873569346 ICD Code: Z22.330 - CARRIER OF GROUP B STREPTOCOCCUS Status: Acute Current Visit: Yes (3) First degree laceration of perineum, delivered, current hospitalization SNOMED Code(s): 850507745 ICD Code: O70.0 - FIRST DEGREE PERINEAL LACERATION DURING DELIVERY Status: Acute Current Visit: Yes - Patient Summary/Data Complications: None Consults: None Hospital Course: Uneventful - Patient Instructions Diet: Heart Healthy Diet Driving: Do Not Drive Showering/Bathing: May Shower (48 hours) Notify Provider of: Fever, Increased Pain, Swelling and Redness, Drainage, Nausea and/or Vomiting - Discharge Plan Home Medications: Home Meds Calcium Carbonate/Vitamin D3 [Calcium 500 mg Chewable Tablet] 1 each PO DAILY [History] Fluticasone/Salmeterol [Advair 250-50 Diskus] 1 puff INH BID 03/17/17 [History] Prasterone (DHEA)/Calcium Carb [DHEA] 1 tab PO DAILY 03/17/17 [History] Vit #108/Iron/FA [ One Tablet] 1 tab PO DAILY 03/17/17 [History ] buPROPion HCl [Wellbutrin Xl] 150 mg PO DAILY 03/17/17 [History] Acetaminophen [Tylenol] 650 mg PO Q6H PRN #0 tablet 03/18/17 [Rx] Benzocaine/Menthol [Dermoplast Pain Relief [place]] 1 spray TOP ASDIRECTED PRN #0 canister 03/18/17 [Rx] Ibuprofen [IJD: Ibuprofen] 200 - 600 mg PO Q6H PRN #0 tablet 03/18/17 [Rx] Referrals: Alek Shah MD [Physician] - (6 weeks) - Discharge Summary/Plan Comment DC Time >30 min.: No - Patient Data Vitals - Most Recent: Last Vital Signs Temp 98.1 F 03/18/17 05:59 Pulse 82 03/18/17 05:59 Resp 12 03/18/17 05:59 BP 119/91 H 03/18/17 05:59 Pulse Ox 98 03/18/17 05:59 Weight - Most Recent: 176 lb 12.817 oz I&O - Last 24 hours: Intake & Output 03/17/17 03/18/17 03/18/17 22:59 06:59 14:59 Intake Total 750 Balance 750 Lab Results - Last 24 hrs: Laboratory Results - last 24 hr 03/17/17 Range/Units 10:29 WBC 7.37 (3.98-10.04) K/mm3 RBC 4.33 (3.98-5.22) M/mm3 Hgb 13.1 (11.2-15.7) gm/L Hct 39.4 (34.1-44.9) % MCV 91.0 (79.4-94.8) fl MCH 30.3 (25.6-32.2) pg MCHC 33.2 (32.2-35.5) g/dl RDW Std Deviation 43.4 (36.4-46.3) fL Plt Count 132 L (182-369) K/mm3 MPV 12.1 (9.4-12.3) fl Neut % (Auto) 68.9 (34.0-71.1) % Lymph % (Auto) 21.8 (19.3-51.7) % [place] % (Auto) 8.4 (4.7-12.5) % Eos % (Auto) 0.3 L (0.7-5.8) Baso % (Auto) 0.1 (0.1-1.2) % Neut # (Auto) 5.07 (1.56-6.13) K/mm3 Lymph # (Auto) 1.61 (1.18-3.74) K/mm3 [place] # (Auto) 0.62 H (0.24-0.36) K/mm3 Eos # (Auto) 0.02 L (0.04-0.36) K/mm3 Baso # (Auto) 0.01 (0.01-0.08) K/mm3 Med Orders - Current: Current Medications Acetaminophen (Tylenol) 650 mg PO Q4H PRN PRN Reason: mild pain or fever Benzocaine/Menthol (Dermoplast Pain Relief [place]) 0 gm TOP ASDIRECTED PRN PRN Reason: Perineal Comfort Measure Last Admin: 03/17/17 18:50 Dose: 1 can Bupropion HCl (Wellbutrin Xl) 150 mg PO DAILY ARACELI Emollient Ointment (Lansinoh Hpa) 0 gm TOP ASDIRECTED PRN PRN Reason: Sore Nipples Ibuprofen (Motrin) 600 mg PO Q4H PRN PRN Reason: Mild pain or fever Last Admin: 03/17/17 18:50 Dose: 600 mg Mometasone Furoate/Formoterol Fumar (Dulera 200-5 Mcg) 2 puff IH BID ARACELI Last Admin: 03/17/17 22:45 Dose: Not Given Prenat Multivit/[place]/Iron/Folic Ac ( Plus Iron) 1 each PO DAILY [facility] Yayo Myers (Tucks) 1 pad TOP ASDIRECTED PRN PRN Reason: Hemorrhoid pain Last Admin: 03/17/17 18:50 Dose: 1 can Discontinued Medications Ephedrine Sulfate (Ephedrine Sulfate) 5 mg IVPUSH ASDIRECTED PRN PRN Reason: Hypotension Fentanyl (Sublimaze) 100 mcg EPIDUR Q3H PRN PRN Reason: Pain Last Admin: 03/17/17 13:34 Dose: 100 mcg Fentanyl/Bupivacaine HCl (Fentanyl/Bupivacaine/Ns 2 Mcg-0.125% 100 Ml) 100 ml EPIDUR ASDIRECTED [facility] Last Admin: 03/17/17 13:33 Dose: 100 ml Ampicillin Sodium 1 gm/ Sodium (Chloride) 100 mls @ 200 mls/hr IV Q15M [facility] Stop: 03/17/17 09:30 Last Admin: 03/17/17 10:23 Dose: Not Given Lactated Ringer's (Ringers, Lactated) 1,000 mls @ 100 mls/hr IV ASDIRECTED [facility] Last Admin: 03/17/17 13:53 Dose: 100 mls/hr Oxytocin/Lactated Ringer's (Pitocin In Lr 10 Units/1,000 Ml) 10 unit in 1,000 mls @ 500 mls/hr IV .CONTINUOUS ARACELI Oxytocin/Lactated Ringer's (Pitocin In Lr 10 Units/1,000 Ml) 10 unit in 1,000 mls @ 12 mls/hr IV TITRATE ARACELI; 2 MUNITS/MIN PRN Reason: Protocol Last Titration: 03/17/17 12:27 Dose: 4 munits/min, 24 mls/hr Ampicillin Sodium 1 gm/ Sodium (Chloride) 100 mls @ 200 mls/hr IV Q4H [facility] Last Admin: 03/17/17 17:12 Dose: Not Given Ampicillin Sodium 1 gm/ Sodium (Chloride) 100 mls @ 200 mls/hr IV Q4H ARACELI Last Admin: 03/17/17 13:15 Dose: 200 mls/hr Misoprostol (Cytotec) 25 mcg VAG ONETIME ONE Stop: 03/17/17 08:47 Last Admin: 03/17/17 09:12 Dose: 25 mcg Nalbuphine HCl (Nubain) 10 mg IVPUSH Q2H PRN PRN Reason: Pain (moderate 4-6) Ondansetron HCl (Zofran) 4 mg IVPUSH Q4H PRN PRN Reason: Nausea/Vomiting Ondansetron HCl (Zofran) 4 mg IVPUSH ONETIME PRN PRN Reason: Nausea/Vomiting Sodium Chloride (Saline Flush) 10 ml FLUSH ASDIRECTED PRN PRN Reason: Keep Vein Open *Q Meaningful Use (DIS) - VTE *Q VTE Criteria *Q: - Stroke *Q Stroke Criteria *Q: - AMI *Q AMI Criteria *Q:
[2017-03-18] MEDS: Formoterol/Mometasone 200-5 MCG 8.8 GM Inhaler IH SCH (08:16)
[2017-03-18] MEDS ORDERED: Prenatal Multivitamin with Calcium/Folic Acid/Iron Tab PO SCH (09:00)
[2017-03-18] MEDS ORDERED: buPROPion 150 MG Tab.ER PO SCH (09:00)
[2017-03-18] MEDS ORDERED: ADVAIR INH SCH (09:00)
[2017-03-18 09:51] VITALS: BP 121/81
== END 2017-03-18 17:45 | disposition home or self-care (01) | DRG 775 ==
LOC: JD.OB 08:25 → OBSVTOIN 16:10
PROVIDERS: ADMIT Obstetrics & Gynecology; ATTEND Obstetrics & Gynecology
PROC: 10E0XZZ Delivery of Products of Conception, External Approach (ICD-10-PCS; principal; 2017-03-17)
PROC: 3E0P7GC Introduction of Other Therapeutic Substance into Female Reproductive, Via Natural or Artificial Opening (ICD-10-PCS; 2017-03-17)
PROC: 0HQ9XZZ Repair Perineum Skin, External Approach (ICD-10-PCS; 2017-03-17)
PROC: 10907ZC Drainage of Amniotic Fluid, Therapeutic from Products of Conception, Via Natural or Artificial Opening (ICD-10-PCS; 2017-03-17)
PROC: 00HU33Z Insertion of Infusion Device into Spinal Canal, Percutaneous Approach (ICD-10-PCS; 2017-03-17)
PROC: 3E0R3CZ (ICD-10-PCS; 2017-03-17)
DX: O99.824 Streptococcus B carrier state complicating childbirth (principal); O70.0 First degree perineal laceration during delivery; Z3A.39 39 weeks gestation of pregnancy; Z37.0 Single live birth
CPT/HCPCS: 36415; 85025; A9270-GY; J0290; J2590; J3010; J7030; J7120